=== PATIENT | male | born 1970 | race African-American/Black ===

== ENCOUNTER 2017-10-25 18:39 | Emergency (ER) | payer MEDICAID ==
[~2017-10-25] VITALS: Ht 177.8 cm; Wt 91.9 kg
[2017-10-25 19:20] VITALS: BP 143/73
== END 2017-10-25 21:33 | disposition home or self-care (01) ==
LOC: ED 21:20
DX: M79.661 Pain in right lower leg (principal); Z76.0 Encounter for issue of repeat prescription
CPT/HCPCS: 99284

== ENCOUNTER 2017-12-24 03:07 | Emergency (ER) | payer MEDICAID ==
[~2017-12-24] VITALS: Ht 177.8 cm; Wt 90.1 kg
[2017-12-24] MEDS ORDERED: FLUT12AE2 INH (03:28)
[2017-12-24] MEDS ORDERED: ALBUTEROL SULFATE 2.5 MG/3 ML NPPB ONE (03:30)
[2017-12-24] MEDS ORDERED: ALBUTEROL/IPRATROPIUM 2.5MG/0.5MG, 3 ML ONE (04:05)
[2017-12-24 04:43] VITALS: BP 131/79
== END 2017-12-24 04:45 | disposition home or self-care (01) ==
LOC: ED 04:35
DX: J45.31 Mild persistent asthma with (acute) exacerbation (principal); R06.00 Dyspnea, unspecified; Z87.891 Personal history of nicotine dependence
CPT/HCPCS: 71046; 93005; 94640; 99284; J7613

== ENCOUNTER 2018-03-10 09:24 | Emergency (ER) | payer MEDICAID ==
[~2018-03-10] VITALS: Ht 177.8 cm; Wt 96.8 kg
[~2018-03-10 09:24] MED LIST: FLUT12AE2 INH
[2018-03-10] MEDS ORDERED: BREO ELLIPTA INH (10:30)
[2018-03-10] MEDS ORDERED: ALBU2.5V NEB (10:30)
[2018-03-10] MEDS ORDERED: albuterol inhaler (10:30)
[2018-03-10] MEDS ORDERED: ALBUTEROL SULFATE 2.5 MG/3 ML ONE ×2 (11:06→11:12)
[2018-03-10] MEDS: ALBUTEROL SULFATE 2.5 MG/3 ML NPPB SCH ×2 (11:11→11:13)
[2018-03-10 12:14] VITALS: BP 139/76
== END 2018-03-10 12:18 | disposition home or self-care (01) ==
LOC: ED 10:41
DX: J45.31 Mild persistent asthma with (acute) exacerbation (principal)
CPT/HCPCS: 71045; 93005; 99284; J7512; J7613

== ENCOUNTER 2018-05-28 15:01 | Emergency (ER) | payer MEDICAID ==
[~2018-05-28] VITALS: Ht 177.8 cm; Wt 101.4 kg
[~2018-05-28 15:01] MED LIST changes: +ALBU2.5V NEB; +BREO ELLIPTA INH; +albuterol inhaler
[2018-05-28] MEDS ORDERED: ALBUTEROL/IPRATROPIUM 2.5MG/0.5MG, 3 ML ONE ×2 (15:29→16:16)
[2018-05-28] MEDS ORDERED: ALBUTEROL/IPRATROPIUM 2.5MG/0.5MG, 3 ML NPPB ONE ×2 (15:30→16:30)
[2018-05-28 17:04] VITALS: BP 152/82
== END 2018-05-28 17:07 | disposition home or self-care (01) ==
LOC: ED 16:28
DX: J45.909 Unspecified asthma, uncomplicated (principal); F17.210 Nicotine dependence, cigarettes, uncomplicated
CPT/HCPCS: 71046; 93005; 94640; 99284; J7512; J7620

== ENCOUNTER 2018-07-19 05:51 | Emergency (ER) | payer MEDICAID ==
[~2018-07-19] VITALS: Ht 177.8 cm; Wt 98.0 kg
[2018-07-19] MEDS ORDERED: ALBU18HF IH (06:01)
[2018-07-19] MEDS ORDERED: FLUT1AER INH (06:01)
[2018-07-19] MEDS ORDERED: ALBUTEROL/IPRATROPIUM 2.5MG/0.5MG, 3 ML ONE ×2 (06:21→06:35)
[2018-07-19] MEDS ORDERED: ALBUTEROL SULFATE 2.5 MG/3 ML NPPB ONE (06:30)
[2018-07-19] MEDS: ALBUTEROL/IPRATROPIUM 2.5MG/0.5MG, 3 ML NPPB SCH ×2 (06:32→06:37)
[2018-07-19] MEDS ORDERED: ALBUTEROL SULFATE 2.5MG/0.5ML ONE (06:35)
--- NOTE | 2018-07-19 06:43 | NUR ---
XRAY COMPLETE. BREATHING TREATMENT COMPLETE. PT MEDICATED WITH PREDNISONE.
--- NOTE | 2018-07-19 06:57 | NUR ---
received report from Fernando. pt upright on gurney sleeping, NAD with equal chest rise/fall, no needs at this time, call light within reach.
[2018-07-19 07:52] VITALS: BP 112/73
--- NOTE | 2018-07-19 07:53 | NUR ---
pt upright on gurney awake & more comfortable, breakfast tray given, responds approp to staff, NAD, comfort measures provided, call light within reach.
--- NOTE | 2018-07-19 08:05 | NUR ---
Patient given discharge instructions and Rx, they have confirmed that they understand the instructions. Patient ambulatory with steady gait.
== END 2018-07-19 08:06 | disposition home or self-care (01) ==
LOC: ED 07:00
DX: J45.31 Mild persistent asthma with (acute) exacerbation (principal); J06.9 Acute upper respiratory infection, unspecified; Z72.9 Problem related to lifestyle, unspecified; F17.210 Nicotine dependence, cigarettes, uncomplicated
CPT/HCPCS: 71046; 94640; 99284; J7512; J7613; J7620

== ENCOUNTER 2018-11-23 15:34 | Emergency (ER) | payer MEDICAID ==
[~2018-11-23] VITALS: Ht 177.8 cm; Wt 93.3 kg
[~2018-11-23 15:34] MED LIST changes: +ALBU18HF IH; +FLUT1AER INH
[2018-11-23] MEDS ORDERED: ALBUTEROL/IPRATROPIUM 2.5MG/0.5MG, 3 ML ONE ×3 (15:58→16:16)
[2018-11-23] MEDS ORDERED: ALBUTEROL/IPRATROPIUM 2.5MG/0.5MG, 3 ML NPPB SCH (16:00)
[2018-11-23] MEDS ORDERED: ALBUTEROL/IPRATROPIUM 2.5MG/0.5MG, 3 ML NPPB ONE (16:00)
--- NOTE | 2018-11-23 16:08 | NUR ---
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 MEDICATED PER ORDER, CALLED RT STAT FOR BREATHING TX
--- NOTE | 2018-11-23 16:39 | NUR ---
BREAK RN: PT COMPLETED BREATHING TX X 2, RESP DECREASED TO 22 HOUR. STATES HE IS BREATHING BETTER. AT BS
[2018-11-23] MEDS ORDERED: ALBUTEROL SULFATE 2.5 MG/3 ML NPPB ONE (17:30)
[2018-11-23 17:34] LABS: BASOPHILS # (AUTO) 0.03 x10^3/uL (0-0.1); BASOPHILS % (AUTO) 0 % (0-1); EOSINOPHILS # (AUTO) 0.57 x10^3/uL (0-0.4); EOSINOPHILS % (AUTO) 7 % (1-7); LYMPHOCYTES % (AUTO) 16 % (22-44); MD NO; MEAN CORPUSCULAR HEMOGLOBIN 30.7 pg (27.5-34.5); MEAN CORPUSCULAR HGB CONC 32.8 g/dL (33.2-36.2); MEAN CORPUSCULAR VOLUME 93.7 fL (81-97); MEAN PLATELET VOLUME 8.2 fL (7.4-10.4); MONOCYTES # (AUTO) 0.65 x10^3/uL (0.2-0.8); MONOCYTES % (AUTO) 8 % (2-9); NEUTROPHILS # (AUTO) 5.78 x10^3/uL (1.8-6.8); NEUTROPHILS % (AUTO) 70 % (42-75); PLATELET COUNT 249 x10^3/uL (130-400); RED CELL DISTRIBUTION WIDTH 14.2 % (9.4-14.8)
[2018-11-23 17:48] LABS: ALBUMIN 3.7 g/dL (3.4-5.0); ANION GAP 6 mmol/L (5-15); CALCIUM 8.9 mg/dL (8.5-10.1); CHLORIDE 114 mmol/L (98-107)
[2018-11-23 17:51] VITALS: BP 123/57
[2018-11-23 17:54] LABS: CREATININE 0.95 mg/dL (0.7-1.3)
== END 2018-11-23 18:20 | disposition home or self-care (01) ==
LOC: ED 18:00
DX: J45.41 Moderate persistent asthma with (acute) exacerbation (principal); F17.200 Nicotine dependence, unspecified, uncomplicated
CPT/HCPCS: 36415; 71045; 80048; 82040; 83880; 85025; 93005; 94640; 99285; J7512; 99284

== ENCOUNTER 2018-12-07 15:02 | Emergency (ER) | payer MEDICAID ==
[~2018-12-07] VITALS: Ht 177.8 cm; Wt 96.4 kg
--- NOTE | 2018-12-07 16:14 | NUR ---
POLYSOMNOGRAPHIC TECHNOLOGIST: PT AMBULATORY TO ED ROOM 34 FROM [facility] AT THIS TIME
--- NOTE | 2018-12-07 16:20 | NUR ---
PT AMBULATED TO ROOM, ASSUMED CARE OF PT
--- NOTE | 2018-12-07 16:38 | NUR ---
PT TO RADIOLOGY AT THIS TIME
[2018-12-07] MEDS ORDERED: ALBUTEROL SULFATE 2.5 MG/3 ML NPPB ONE (18:00)
[2018-12-07] MEDS ORDERED: ALBUTEROL/IPRATROPIUM 2.5MG/0.5MG, 3 ML NPPB ONE (18:00)
[2018-12-07 18:34] VITALS: BP 118/79
== END 2018-12-07 18:36 | disposition home or self-care (01) ==
LOC: ED 17:44
DX: J45.41 Moderate persistent asthma with (acute) exacerbation (principal); F17.200 Nicotine dependence, unspecified, uncomplicated; Z88.0 Allergy status to penicillin
CPT/HCPCS: 71046; 94640; 94664; 99284; J7512; J7620